=== PATIENT | female | born 1975 | race Caucasian/White ===

== ENCOUNTER 2017-10-09 02:54 | Inpatient (IN) | payer MEDICAID ==
[~2017-10-09] VITALS: Ht 167.6 cm; Wt 101.3 kg
[2017-10-09] MEDS ORDERED: MAGNESIUM 2 G PREMIX 50 ML IV STA (03:23)
[2017-10-09] MEDS ORDERED: SODIUM CHLORIDE 0.9% 1,000 ML IV ONE (03:23)
[2017-10-09] MEDS ORDERED: METHYLPREDNISOLONE SOD SUCC 125 MG/2 ML VIAL IV STA (03:23)
[2017-10-09 03:55] LABS: BASOPHILS % 0.4 % (0.0-2.0); EOSINOPHILS % 2.5 % (0.0-5.0); HEMATOCRIT. 35.1 % (36.0-48.0); HEMOGLOBIN. 11.5 g/dL (12.0-16.0); LYMPHOCYTES % 37.4 % (20.0-50.0); MEAN CORPUSCULAR VOLUME 82.7 fL (81.0-99.0); MEAN PLATELET VOLUME 7.8 fl (7.4-10.4); MONOCYTES % 9.3 % (2.0-8.0); NEUTROPHILS % 50.4 % (40.0-76.0); PLATELET 362 x1000/uL (130-400); RED BLOOD CELL COUNT 4.24 mill/uL (4.2-5.4); RED CELL DISTRIBUTION WIDTH 14.1 % (11.6-14.6)
[2017-10-09 03:58] LABS: CHLORIDE 109 mEq/L (98-107)
[2017-10-09 04:02] LABS: HCG SCREEN NEGATIVE
[2017-10-09 04:06] LABS: D-DIMER 1.22 mg/L FEU (<0.50)
[2017-10-09] MEDS ORDERED: ONDANSETRON HCL 4MG/2ML VIAL IV NR (04:40)
[2017-10-09] MEDS ORDERED: MORPHINE SULFATE 4 MG/ML CPJ (NOT FOR IM USE) IV NR (04:40)
[2017-10-09] MEDS ORDERED: IOHEXOL-350 100 ML BOTTLE ONE (05:47)
[2017-10-09 09:27] VITALS: BP 126/68
[2017-10-09 09:28] VITALS: BP 126/68
[2017-10-09] MEDS ORDERED: ONDANSETRON 4MG ODT PO PRN (11:30)
[2017-10-09] MEDS ORDERED: ACETAMINOPHEN 325MG TABLET PO PRN (11:30)
[2017-10-09] MEDS ORDERED: CLONIDINE 0.1MG TABLET PO PRN (11:30)
[2017-10-09] MEDS ORDERED: HYDROCODONE/ACETAMINOPHEN 5/325MG TABLET PO PRN (11:30)
[2017-10-09] MEDS ORDERED: IPRATROPIUM/ALBUTEROL 0.5-3(2.5)MG/3ML NEB INH PRN (11:30)
[2017-10-09] MEDS: ASPIRIN 81MG EC TABLET PO SCH (13:53)
[2017-10-09] MEDS: ENOXAPARIN 30MG/0.3ML SYR SUBCUT SCH ×2 (13:54→21:32)
[2017-10-09 16:00] VITALS: BP 115/65
[2017-10-09 16:47] LABS: CLARITY URINE CLEAR (CLEAR); COLOR URINE YELLOW (YELLOW); KETONES URINE NEGATIVE (NEGATIVE); LEUKOCYTE ESTERASE URINE 1+ (NEGATIVE); NITRITE URINE NEGATIVE (NEGATIVE); OCCULT BLOOD URINE 2+ (NEGATIVE); PROTEIN URINE NEGATIVE (NEGATIVE); SPECIFIC GRAVITY URINE 1.032 (1.005-1.030); UROBILINOGEN URINE 0.2 E.U./dL (0.2-1.0)
[2017-10-09 17:14] LABS: *AMPHETAMINES SCREEN URINE NEGATIVE (NEGATIVE); *BARBITURATES SCREEN URINE NEGATIVE (NEGATIVE); *BENZODIAZEPINES SCREEN URINE NEGATIVE (NEGATIVE); *COCAINE SCREEN URINE NEGATIVE (NEGATIVE)
[2017-10-09 17:15] LABS: CANNABINOID URINE SCREEN NEGATIVE (NEGATIVE); METHADONE URINE SCREEN NEGATIVE (NEGATIVE); OPIATES URINE SCREEN NEGATIVE (NEGATIVE); PHENCYCLIDINE URINE SCREEN NEGATIVE (NEGATIVE)
[2017-10-09 20:00] VITALS: BP 107/63
[2017-10-10] VITALS: BP 121/70
[2017-10-10 04:00] VITALS: BP 106/67
[2017-10-10 05:13] LABS: BASOPHILS % 0.1 % (0.0-2.0); HEMATOCRIT. 37.2 % (36.0-48.0); HEMOGLOBIN. 12.2 g/dL (12.0-16.0); LYMPHOCYTES % 19.9 % (20.0-50.0); MEAN CORPUSCULAR HEMOGLOBIN 27.4 pg (28.0-32.0); MEAN CORPUSCULAR VOLUME 83.6 fL (81.0-99.0); MEAN PLATELET VOLUME 7.8 fl (7.4-10.4); MONOCYTES % 5.5 % (2.0-8.0); NEUTROPHILS % 74.5 % (40.0-76.0); PLATELET 409 x1000/uL (130-400); RED BLOOD CELL COUNT 4.45 mill/uL (4.2-5.4); RED CELL DISTRIBUTION WIDTH 14.3 % (11.6-14.6)
[2017-10-10 07:15] VITALS: BP 104/54
[2017-10-10] MEDS: ASPIRIN 81MG EC TABLET PO SCH (09:10)
[2017-10-10] MEDS: ENOXAPARIN 30MG/0.3ML SYR SUBCUT SCH (09:10)
[2017-10-10 09:15] LABS: CHLORIDE 107 mEq/L (98-107)
[2017-10-10 09:24] LABS: LDL CHOLESTEROL 83 mg/dL (5-100)
[2017-10-10 09:25] LABS: HDL CHOLESTEROL 75 mg/dL (40-59)
[2017-10-10 09:26] LABS: T4 FREE 0.97 ng/dL (0.76-1.46)
[2017-10-10 11:38] VITALS: BP 97/57
[2017-10-10 15:06] VITALS: BP 106/63
[2017-10-10 19:18] VITALS: BP 127/61
== END 2017-10-10 19:50 | disposition home or self-care (01) | DRG 144 ==
LOC: ER 02:54 → 5WST 04:45 → ENRESERV 07:00
PROVIDERS: ADMIT Internal Medicine; ATTEND Internal Medicine
DX: J40 Bronchitis, not specified as acute or chronic (principal); E66.9 Obesity, unspecified; M94.0 Chondrocostal junction syndrome [Tietze]; D64.9 Anemia, unspecified; F41.9 Anxiety disorder, unspecified; R79.1 Abnormal coagulation profile; Z90.49 Acquired absence of other specified parts of digestive tract; Z68.36 Body mass index [BMI] 36.0-36.9, adult
CPT/HCPCS: 36415; 71045; 71275; 80053; 80061; 80305; 81003; 83880; 84439; 84443; 84484; 84703; 85025; 85379; 85610; 87804; 93005; 93306; 93970; J1650; J2270; J2405; J2930; J3475; J7030; Q9967

== ENCOUNTER 2018-05-08 18:28 | Emergency (ER) | payer MEDICAID ==
[~2018-05-08] VITALS: Ht 170.2 cm; Wt 109.0 kg
[2018-05-08 21:40] VITALS: BP 117/54
== END 2018-05-09 01:52 | disposition home or self-care (01) ==
LOC: ER 18:28
DX: L30.9 Dermatitis, unspecified (principal); K21.9 Gastro-esophageal reflux disease without esophagitis; Z90.49 Acquired absence of other specified parts of digestive tract; Z98.890 Other specified postprocedural states
CPT/HCPCS: 99282